=== PATIENT | female | born 1945 | race Caucasian/White ===

== ENCOUNTER 2021-05-02 15:57 | Outpatient (CLI) | payer MEDICARE, SELFPAY ==
--- NOTE | ~2021-05-02 | XR_ITS ---
XR knee RT 3V, XR knee LT 3V 05/02/2021 16:28 Indication: Chronic bilateral knee pain Procedure: 3 views of each knee Comparison: No prior studies for comparison. Findings: Osteopenia. Mild bilateral symmetric osteoarthritis. No fracture, subluxation or dislocatio n. No significant joint effusion. Impression: 1: Mild bilateral osteoarthritis of the knees. Reviewed, dictated and finalized at location B. Impression: 1: Mild bilateral osteoarthritis of the knees. Impression: 1: Mild bilateral osteoarthritis of the knees.
[2021-05-02 19:02] LABS: Hematocrit 44.5 % (37.0-47.0); Hemoglobin 14.4 g/dL (12.0-15.0); Mean Corpuscular HGB Conc 32.4 g/dl (32-36); Mean Corpuscular Hemoglobin 29.6 pg (26-34); Mean Corpuscular Volume 91.6 fl (80-100); Mean Platelet Volume 10.1 fl (7.4-10.4); Platelet Count Result 452 k/mm3 (150-375); Red Blood Count 4.86 M/mm3 (4.2-5.4); Red Cell Distribution Width 12.5 % (11.5-14.5); White Blood Count 12.5 K/mm3 (4.5-10.0)
[2021-05-02 19:04] LABS: Potassium 4.4 mmol/L (3.4-5.0)
[2021-05-02 19:13] LABS: Alanine Aminotransferase 21 U/L (4-35); Albumin Level 4.2 g/dL (3.5-5.1); Alkaline Phosphatase 145 U/L (38-126); Anion Gap 13 mmol/L (8-16); Aspartate Amino Transferase 24 U/L (14-36); Bilirubin,Total 0.6 mg/dL (0.2-1.3); Blood Urea Nitrogen 24 mg/dL (7-17); Calcium 9.4 mg/dL (8.4-10.2); Carbon Dioxide 25 mmol/L (22-30); Chloride 98 mmol/L (98-107); Estimated Glomerular Filt Rate > 60; Glucose 305 mg/dL (65-110); Sodium 136 mmol/L (137-145)
[2021-05-02 20:12] LABS: Folic Acid > 20.0 ng/mL (2.76->20)
== END 2021-05-02 15:58 | disposition home or self-care (01) ==
LOC: ANHBWCLAB 16:00
PROVIDERS: PCP Family Medicine; Visit Provider Family Medicine
DX: R42 Dizziness and giddiness (principal); G43.909 Migraine, unspecified, not intractable, without status migrainosus; M19.90 Unspecified osteoarthritis, unspecified site; Z91.81 History of falling; M17.0 Bilateral primary osteoarthritis of knee
CPT/HCPCS: 36415; 73562; 80053; 82607; 82746; 85027

== ENCOUNTER 2021-05-13 13:17 | Outpatient (CLI) | payer MEDICARE, SELFPAY ==
[2021-05-13 18:05] LABS: Basophils Absolute Auto 0.1 K/mm3 (0.0-0.1); Basophils Percent Auto 0.4 % (0.2-1.2); Eosinophils Absolute Auto 0.1 K/mm3 (0-0.3); Eosinophils Percent Auto 1.2 % (0-4.4); Hematocrit 46.1 % (37.0-47.0); Hemoglobin 14.4 g/dL (12.0-15.0); Immature Granulocyte Absolute 0.07 K/mm3 (0.00-0.031); Immature Granulocyte Percent A 0.6 % (0-0.5); Lymphocytes Absolute Auto 1.75 K/mm3 (0.9-3.2); Lymphocytes Percent Auto 14.6 % (18.3-44.2); Mean Corpuscular HGB Conc 31.2 g/dl (32-36); Mean Corpuscular Hemoglobin 29.5 pg (26-34); Mean Corpuscular Volume 94.5 fl (80-100); Mean Platelet Volume 9.9 fl (7.4-10.4); Monocytes Absolute Auto 0.8 K/mm3 (0.1-0.6); Monocytes Percent Auto 6.9 % (2.6-8.5); Neutrophils Absolute Auto 9.2 K/mm3 (1.3-6.7); Neutrophils Percent Auto 76.3 % (45.5-73.1); Platelet Count Result 450 k/mm3 (150-375); Red Blood Count 4.88 M/mm3 (4.2-5.4); Red Cell Distribution Width 12.9 % (11.5-14.5)
[2021-05-13 18:11] LABS: Alkaline Phosphatase 138 U/L (38-126)
[2021-05-13 18:14] LABS: Add Urine Microscopic? YES; Appearance Urine Cloudy (Clear); Bacteria Urine Trace /hpf; Bilirubin Urine Negative (Negative); Blood Urine 3+ (Negative); Calcium Oxalate Crystals Urine Many /hpf; Color Urine Amber (Yellow); Glucose Urine UA 3+ mg/dL (Negative); Ketones Urine 1+ mg/dL (Negative); Leukocyte Esterase Ur 1+ LEU/UL (NEGATIVE); Mucus Urine Few /lpf; Nitrate Urine Negative (Negative); Protein Urine 1+ mg/dL (Negative); RBC Urine >75 /hpf (0-2); Specific Grav Ur 1.021 (1.001-1.035); Squamous Epithelial Cell Urine Moderate /hpf (Few); Urobilinogen Urine Negative mg/dL (<2.0); WBC Urine 21-30 /hpf (0-3)
[2021-05-13 18:44] LABS: Thyroid Stimulating Hormone Reflex 0.845 uIU/mL (0.465-4.68)
[2021-05-13 18:48] LABS: Hemoglobin A1C 10.5 % (<5.7)
[2021-05-20 16:00] LABS: Parathyroid Hormone Related Pr 12 pg/mL (11-20)
== END 2021-05-13 13:18 | disposition home or self-care (01) ==
PROVIDERS: PCP Family Medicine; Visit Provider Family Medicine
DX: R79.89 Other specified abnormal findings of blood chemistry (principal); D72.829 Elevated white blood cell count, unspecified; R74.8 Abnormal levels of other serum enzymes; I10 Essential (primary) hypertension; E11.65 Type 2 diabetes mellitus with hyperglycemia; E66.3 Overweight; Z91.81 History of falling
CPT/HCPCS: 36415; 81001; 83036; 83519; 84075; 84443; 85025

== ENCOUNTER 2021-06-03 10:21 | Outpatient (CLI) | payer MEDICARE, SELFPAY ==
[2021-06-03 15:28] LABS: Basophils Absolute Auto 0.1 K/mm3 (0.0-0.1); Basophils Percent Auto 0.6 % (0.2-1.2); Eosinophils Absolute Auto 0.2 K/mm3 (0-0.3); Eosinophils Percent Auto 2.2 % (0-4.4); Hematocrit 42.8 % (37.0-47.0); Hemoglobin 13.4 g/dL (12.0-15.0); Immature Granulocyte Absolute 0.03 K/mm3 (0.00-0.031); Immature Granulocyte Percent A 0.3 % (0-0.5); Lymphocytes Absolute Auto 2.73 K/mm3 (0.9-3.2); Lymphocytes Percent Auto 27.5 % (18.3-44.2); Mean Corpuscular HGB Conc 31.3 g/dl (32-36); Mean Corpuscular Hemoglobin 28.8 pg (26-34); Mean Corpuscular Volume 91.8 fl (80-100); Mean Platelet Volume 9.7 fl (7.4-10.4); Monocytes Absolute Auto 0.8 K/mm3 (0.1-0.6); Monocytes Percent Auto 8.4 % (2.6-8.5); Platelet Count Result 468 k/mm3 (150-375); Red Blood Count 4.66 M/mm3 (4.2-5.4); White Blood Count 9.9 K/mm3 (4.5-10.0)
== END 2021-06-03 10:22 | disposition home or self-care (01) ==
PROVIDERS: PCP Family Medicine; Visit Provider Family Medicine
DX: N30.90 Cystitis, unspecified without hematuria (principal); D72.829 Elevated white blood cell count, unspecified
CPT/HCPCS: 36415; 85025

== ENCOUNTER 2021-06-09 09:34 | Outpatient (CLI) | payer MEDICARE, SELFPAY ==
[2021-06-09 18:50] LABS: Appearance Urine Cloudy (Clear); Bilirubin Urine Negative (Negative); Blood Urine 1+ (Negative); Color Urine Yellow (Yellow); Glucose Urine UA 3+ mg/dL (Negative); Ketones Urine Negative (Negative); Leukocyte Esterase Ur Trace LEU/UL (NEGATIVE); Nitrate Urine Negative (Negative); Protein Urine Negative (Negative); Specific Grav Ur 1.015 (1.001-1.035); Urobilinogen Urine 0.2 mg/dL (<2.0); pH Urine 6.5 (5.0-9.0)
[2021-06-09 18:55] LABS: Bacteria Urine Trace /hpf; Mucus Urine Rare /lpf; Squamous Epithelial Cell Urine Moderate /hpf (Few)
[2021-06-09 18:56] LABS: Add Urine Microscopic? YES
== END 2021-06-09 09:35 | disposition home or self-care (01) ==
PROVIDERS: PCP Family Medicine; Visit Provider Family Medicine
DX: D72.829 Elevated white blood cell count, unspecified (principal); N30.90 Cystitis, unspecified without hematuria
CPT/HCPCS: 81001; 87077; 87086; 87088; 87186